=== PATIENT | female | born 1985 | race Caucasian/White ===

== ENCOUNTER 2016-11-12 14:15 | Outpatient (RCR) | payer SELFPAY ==
[~2016-11-12 14:15] MED LIST: AMOXICILLIN 50500 MG PO; DOXYCYCLINE 10100 MG PO; PEPCID 20MG TAB20 MG PO; PERCOCET 325 MG1 TA2 PO; PREDNISONE20 MG PO; PROVENTIL0.09 MG/A1 IH; ULTRAM 50MG TAB50 MG PO; VENTOLIN0.09 MG IH
== END 2016-11-20 11:18 | disposition home or self-care (01) ==
LOC: WSPT 14:15
DX: S43.005S Unspecified dislocation of left shoulder joint, sequela (principal); M54.5 Low back pain; X58.XXXS Exposure to other specified factors, sequela

== ENCOUNTER → 2016-11-18 | Outpatient (REF) | LOC: COL.LAB 23:43 | DX: Z01.89 Encounter for other specified special examinations (principal) ==

== ENCOUNTER 2018-02-11 06:31 | Emergency (ER) | payer SELFPAY ==
[~2018-02-11] VITALS: Ht 172.7 cm; Wt 75.0 kg
[2018-02-11 06:50] VITALS: BP 127/79
[2018-02-11 08:29] LABS: COLLECTION METHOD CLEAN CATCH
[2018-02-11 08:42] LABS: MUCOUS Present /lpf; PH 5 (5-8); URINE APPEARANCE Hazy; URINE BACTERIA None Seen /hpf; URINE BILIRUBIN Negative (NEGATIVE); URINE BLOOD 1+ (NEGATIVE); URINE COLOR Yellow; URINE GLUCOSE Negative (NEGATIVE); URINE KETONE Negative (NEGATIVE); URINE LEUKOCYTE ESTERASE Negative (NEGATIVE); URINE NITRATE Negative (NEGATIVE); URINE PROTEIN(semi-quant) 2+ (NEGATIVE); URINE RBC 0-2 /hpf; WHITE BLOOD CELL CAST >12 /lpf
[2018-02-11 08:50] LABS: HEMATOCRIT 41.7 % (37.0-47.0); HEMOGLOBIN 14.9 g/dl (12.5-16.0); MEAN CELL VOLUME 87 fl (80.0-100.0); MEAN CORPUSCULAR HEMOGLOBIN 31 pg (27.0-31.0); MEAN CORPUSCULAR HGB CONC 36 g/dl (33.0-37.0); MEAN PLATELET VOLUME 9.6 fl (7.4-10.4); PLATELET COUNT 332 K/mm3 (130-400); RED BLOOD COUNT 4.81 M/mm3 (4.10-5.30); REDCELL DISTRIBUTION WIDTH-CV 14.3 % (11.5-14.5)
[2018-02-11 08:53] LABS: ALANINE AMINOTRANSFERASE 18 U/L (9-52); ALBUMIN 4.7 gm/dL (3.5-5.0); ALKALINE PHOSPHATASE 89 U/L (50-136); ANION GAP 19 mmol/L (7-16); AST,SGOT 21 U/L (15-37); BILIRUBIN,TOTAL 0.6 mg/dL (0.0-1.0); BLOOD UREA NITROGEN 24 mg/dL (7-17); CALCIUM 9.7 mg/dL (8.4-10.2); CARBON DIOXIDE 19 mmol/L (22-30); CHLORIDE 102 mmol/L (98-107); CREATININE, serum 2.03 mg/dL (0.52-1.25); GLUCOSE 94 mg/dL (74-106); POTASSIUM 3.2 mmol/L (3.4-5.0); SODIUM 140 mmol/L (137-145); TOTAL PROTEIN 9.9 gm/dL (6.4-8.2)
[2018-02-11 10:31] LABS: LYMPHOCYTE 35 % (20.0-51.0); NEUTROPHILS 60 % (42.0-75.2); PLATELET ESTIMATE NORMAL (NORMAL)
[2018-02-11] MEDS ORDERED: ZOFRAN ODT4 MG PO (10:39)
[2018-02-11] MEDS ORDERED: CIPRO 500MG TA500 MG PO (10:39)
[2018-02-11 10:54] VITALS: PULSE 63; TEMP 97.1
== END 2018-02-11 10:52 | disposition home or self-care (01) ==
LOC: COL.ER 06:31
PROVIDERS: Nurse Practitioner Primary Care
DX: N12 Tubulo-interstitial nephritis, not specified as acute or chronic (principal); F41.9 Anxiety disorder, unspecified; K21.9 Gastro-esophageal reflux disease without esophagitis; F43.10 Post-traumatic stress disorder, unspecified
CPT/HCPCS: J0696; J1170; J2405; J2550; J7030; Q9967

== ENCOUNTER 2018-02-25 22:12 | Emergency (ER) | payer SELFPAY ==
[~2018-02-25] VITALS: Ht 172.7 cm; Wt 75.5 kg
[~2018-02-25 22:12] MED LIST changes: +CIPRO 500MG TA500 MG PO; +ZOFRAN ODT4 MG PO
[2018-02-25 22:16] VITALS: BP 139/83; TEMP 98.2
[2018-02-25] MEDS ORDERED: APRESOLINE 25MG25 MG PO (22:29)
[2018-02-25 22:55] LABS: BASO % 0.4 % (0.0-2.0); EOS # 0.1 (0.0-0.7); EOS % 1.2 % (0-4.0); GRAN # 5.8 (1.4-6.5); GRAN % 59.9 % (42.2-75.2); HEMATOCRIT 40.1 % (37.0-47.0); HEMOGLOBIN 14.2 g/dl (12.5-16.0); LYMPH # 2.7 (1.2-3.4); LYMPH % 28.2 % (20.0-51.0); MEAN CELL VOLUME 88 fl (80.0-100.0); MEAN CORPUSCULAR HEMOGLOBIN 31 pg (27.0-31.0); MEAN CORPUSCULAR HGB CONC 35 g/dl (33.0-37.0); MEAN PLATELET VOLUME 9.3 fl (7.4-10.4); PLATELET COUNT 317 K/mm3 (130-400); RED BLOOD COUNT 4.54 M/mm3 (4.10-5.30); REDCELL DISTRIBUTION WIDTH-CV 13.8 % (11.5-14.5)
[2018-02-25] MEDS ORDERED: ZOLOFT 50MG50 MG PO (22:55)
[2018-02-25 23:08] LABS: ALBUMIN 4.3 gm/dL (3.5-5.0); BILIRUBIN,TOTAL 0.8 mg/dL (0.0-1.0); CALCIUM 9.1 mg/dL (8.4-10.2); CREATININE, serum 0.75 mg/dL (0.52-1.25); POTASSIUM 3.2 mmol/L (3.4-5.0); TOTAL PROTEIN 8.8 gm/dL (6.4-8.2)
[2018-02-25] MEDS ORDERED: ZOFRAN ODT4 MG PO (23:39)
[2018-02-25 23:54] VITALS: PULSE 80
== END 2018-02-25 23:55 | disposition home or self-care (01) ==
LOC: COL.ER 22:12
PROVIDERS: Emergency Medicine
DX: R10.13 Epigastric pain (principal); K21.9 Gastro-esophageal reflux disease without esophagitis; Z87.891 Personal history of nicotine dependence
CPT/HCPCS: J2765; J3010; J7030

== ENCOUNTER → 2018-06-03 | Outpatient (CLI) | payer SELFPAY ==
[~2018-06-03] MED LIST changes: +APRESOLINE 25MG25 MG PO; +ZOLOFT 50MG50 MG PO
== END ==
LOC: COL.RAD 09:00
DX: R10.13 Epigastric pain (principal); R11.0 Nausea